=== PATIENT | female | born 1995 | race Caucasian/White ===

== ENCOUNTER 2020-04-13 11:14 | Outpatient (REF) | payer OTHER, SELFPAY ==
[2020-04-13 14:07] LABS: MANUAL DIFF FLAG NO
[2020-04-13 14:23] LABS: Basophils Percent Auto 0.6 % (0-2); Eosinophils Absolute Auto 0.2 X10*3/uL (0.0-0.4); Eosinophils Percent Auto 3.9 % (0-4); Hematocrit 39.4 % (37-47); Hemoglobin 12.8 g/dl (12.0-16.0); Imm Gran Abs Auto 0.01 X10*3/uL (0.00-0.03); Imm Gran Pct Auto 0.2 % (0.0-0.4); Lymphocytes Absolute Auto 1.6 X10*3/uL (1.2-4.9); Lymphocytes Percent Auto 34.9 % (20-40); Mean Corpuscular HGB Conc 32.5 g/dl (31.0-35.0); Mean Corpuscular Volume 89.1 fL (80-98); Mean Platelet Volume 10.6 fL (9.4-12.3); Monocytes Absolute Auto 0.4 X10*3/uL (0.1-1.2); Monocytes Percent Auto 7.7 % (2-11); Neutrophils Absolute Auto 2.5 X10*3/uL (2.0-8.3); Neutrophils Percent Auto 52.7 % (45-73); Platelet Count 266 X10*3/uL (160-400); Red Blood Count 4.42 X10*6/uL (4.20-5.50); Red Cell Distribution Width 12.7 % (11.0-16.0); White Blood Count 4.7 X10*3/uL (4.8-10.8)
[2020-04-13 14:58] LABS: Alanine Aminotransferase 13 U/L (0-31); Albumin Level 4.4 g/dL (3.5-5.0); Alkaline Phosphatase 44 U/L (39-117); Anion Gap 14 (12-20); Aspartate Amino Transferase 17 U/L (5-31); Bilirubin Total 0.4 mg/dL (0.0-1.0); Blood Urea Nitrogen 14 mg/dL (9-16); Calcium 9.1 mg/dL (8.4-10.2); Carbon Dioxide 23 mmol/L (22-29); Chloride 106 mmol/L (96-108); Cholesterol 226 mg/dL; Estimated Glomerular Filt Rate > 60; Glucose Fasting 91 mg/dL (60-99); HDL Cholesterol 74 mg/dL; Iron 60 mcg/dL (30-160); LDL Cholesterol Calculated 133 mg/dl; Percent Iron Saturation 13 % (15-50); Potassium 4.6 mmol/l (3.3-5.1); Sodium 138 mmol/L (135-145); Total Iron Binding Capacity 448 mcg/dL (228-428); Total Protein 7.6 g/dL (6.5-8.0); Triglycerides 95 mg/dL; Unsaturated Iron Binding 388 ug/dL
[2020-04-13 15:22] LABS: TSH reflex Free T4 1.14 mIU/mL (0.32-4.0)
[2020-04-13 15:29] LABS: Vitamin B12 233 pg/mL (200-900)
[2020-04-13 15:52] LABS: Ferritin 16 ng/mL (10-122)
== END 2020-04-13 11:15 | disposition home or self-care (01) ==
LOC: HO.HMGCLDS 11:14
PROVIDERS: PCP Nurse Practitioner Family; Visit Provider Nurse Practitioner Family
DX: Z00.00 Encounter for general adult medical examination without abnormal findings (principal); D50.9 Iron deficiency anemia, unspecified; E53.8 Deficiency of other specified B group vitamins; E61.1 Iron deficiency
CPT/HCPCS: 36415; 80053; 80061; 82607; 82728; 83540; 84443; 85025

== ENCOUNTER → 2020-05-04 10:44 | Outpatient (REF) | payer OTHER, SELFPAY ==
--- NOTE | 2020-05-04 10:48 | CA_ITS ---
Transthoracic Echocardiogram Patient (Last, First, Middle): Becka Parks E Gender: Female Date of : 1995 Age: 24 Procedure Date: 05/04/2020 Procedure Type: Transthoracic Echocardiogram Location: OP Height: 157.48 cm Weight: 58.97 kg BSA: 1.59 m2 Heart Rate: bpm BP: 116 / 52 mmHg Machine Strap Buckler: RELL Montalvo MD: Oli Scott [facility] Variety Saw Operator: Brandin Ortiz MD Symptoms: R01.1 - Cardiac murmur, unspecified Study Quality: Good ECG Rhythm: Sinus Conclusions: - Normal study Findings Left Ventricle Normal left ventricular size, thickness, and systolic function. Diastolic function is normal for age. Right Ventricle Normal right ventricular cavity size and systolic function. Atria Both atria are normal in size. There is no evidence of interatrial shunt. Aortic Valve Normal aortic valve structure and function. There is no aortic valve stenosis. There is no aortic valve regurgitation. Mitral Valve Normal mitral valve structure and function. There is trace mitral valve regurgitation. There is no mitral valve stenosis. Pulmonic Valve The pulmonic valve is likely normal. Tricuspid Valve Normal tricuspid valve structure. There is trace tricuspid valve regurgitation. The right ventricular systolic pressure is normal. The right ventricular systolic pressure is 16 mmHg. Normal right atrial pressure. There is no evidence of pulmonary hypertension. Great Vessels All visible segments of the aorta are normal in size. The pulmonary artery was not well visualized. Venous The inferior vena cava is normal in size and collapses greater than 50% with inspiration. Pericardium/Pleural There is no evidence of pericardial effusion. Prior Study Comparison No prior study available for comparison. Measurements 2D Linear Measurements IVSd: 0.81 0.6-0.9/0.6-1.0 cm LVIDd: 4.33 3.9-5.3/4.2-5.9 cm LVIDd Index: 2.72 2.4-3.2/2.2-3.1 cm/m2 LVIDs: 2.65 2.0-3.6 cm LVPWd: 0.73 0.7-1.1 cm Ao Root: 2.60 2.1-3.5 cm LA Diam: 2.90 2.7-3.8/3.0-4.0 cm LAIDs Index: 1.82 1.5-2.3 cm/m2 LV Mass: 125.06 67-162/88-224 g LV Mass Index: 78.66 43-95/49-115 g/m2 LVOT Diam: 2.00 3.0+(-)1.3 cm 2D Systolic Function EF 4C: 69.60 >55% EF 2C: 66.20 >55% EF BiP: 67.80 >55% Mitral Valve MV Pk E: 0.88 MV PK A: 0.62 MV Decel Time: 236.00 E/A: 1.40 E'Lateral: 19.60 E'Medial: 12.20 E/E' Med: 7.20 E/E' Lat: 4.50 PHT: 69.00 MVA PHT: 3.19 Decel Dubois: 3.71 Aortic Valve AoV Pk Russ: 1.32 AoV Mn Russ: 0.95 AoV VTI: 0.30 AoV Pk Grad: 7.00 Aov Mn Grad: 4.00 MARIANA Cont.VTI: 1.85 LVOT LVOT Pk Russ: 0.87 LVOT Mn Russ: 0.57 LVOT VTI: 0.18 LVOT Pk Grad: 3.00 LVOT Mn Grad: 2.00 LVOT Diam: 2.00 LVOT Area: 3.14 Diastolic Function MV Pk E: 0.88 MV Pk A: 0.62 E/A: 1.40 E'Medial: 12.20 E/E' Med: 7.20 E' Laterial: 19.60 E/E' Lat: 4.50 Tricuspid Valve TR Pk Russ: 1.80 TR Pk Grad: 13.00 RA Press: 3.00 RVSP: 16.00 Great Vessels Aorta Ao Root-2D: 2.60 2.0-3.7 cm Ao Asc: 2.40 2.1-3.4 cm Ao Arch: 2.30 Updated in Other Vendor System with Status of Final Brandin Ortiz MD electronically signed on 05/04/2020 2:37:04 PM with status of Final
== END ==
LOC: HO.CARD 10:44
PROVIDERS: Visit Provider Nurse Practitioner Family
DX: R01.1 Cardiac murmur, unspecified (principal); R00.2 Palpitations
CPT/HCPCS: 93306

== ENCOUNTER → 2020-05-11 12:50 | Outpatient (REF) | payer OTHER, SELFPAY ==
--- NOTE | 2020-05-11 14:10 | ECG_ITS ---
Hook-up date: 2020-05-11 14:49:00 Duration: 47:59:00 Test Indications: PALPITATIONS Medications: 155389 QRS complexes 83 Ventricular ectopics which represent <1 % of total QRS comp. 41 Supraventricular ectopics which represent <1 % of total QRS comp. * Paced QRS complexs which represent % of total QRS comp. VENTRICULAR ECTOPY 83 Isolated 0 Bigeminal Cycles 0 Couplets 0 Runs 0 Beats in Runs * Beats LONGEST at * BPM at :: -- * Beats FASTEST at * BPM at :: -- SUPRAVENTRICULAR ECTOPY 41 Isolated 0 Couplets 0 Runs 0 Beats in Runs * Beats LONGEST at * BPM at :: -- * Beats FASTEST at * BPM at :: -- HEART RATES 51 MIN at 04:45:44 2020-05-12 87 AVG 160 MAX at 14:51:24 2020-05-12 LONGEST RR 1.3200 secs at 03:09:28 2020-05-12 S-T LEVELS Channel 1 - 128 mm at 14:49:00 2020-05-11 - 128 mm at 14:49:00 2020-05-11 Channel 2 - 128 mm at 14:49:00 2020-05-11 - 128 mm at 14:49:00 2020-05-11 Channel 3 - 128 mm at 03:40:81 -- - 128 mm at 03:40:81 Basic rhythm Normal sinus rhythm No long pause or profound bradycardia Rare Premature ventricular complexes Rare Premature atrial complexes Patient symptoms of fluttering probably correlated with PAC Referred By: Oli Scott Overread By: SHELLY ACOSTA MD
== END ==
LOC: HO.CARD 12:50
PROVIDERS: Visit Provider Nurse Practitioner Family
DX: R00.2 Palpitations (principal)
CPT/HCPCS: 93225; 93226

== ENCOUNTER 2021-03-23 12:52 | Outpatient (REF) | payer OTHER, SELFPAY ==
[2021-03-23 14:27] LABS: Basophils Percent Auto 0.7 % (0-2); Eosinophils Absolute Auto 0.2 X10*3/uL (0.0-0.4); Eosinophils Percent Auto 3.7 % (0-4); Hematocrit 40.6 % (37.0-47.0); Hemoglobin 13.6 g/dl (12.0-16.0); Imm Gran Abs Auto 0.01 X10*3/uL (0.00-0.03); Imm Gran Pct Auto 0.2 % (0.0-0.4); Lymphocytes Absolute Auto 1.7 X10*3/uL (1.2-4.9); MANUAL DIFF FLAG SCAN; Mean Corpuscular HGB Conc 33.5 g/dl (31.0-35.0); Mean Corpuscular Hemoglobin 30.1 pg (27.0-33.0); Mean Corpuscular Volume 89.8 fL (80.0-98.0); Mean Platelet Volume 10.9 fL (9.4-12.3); Monocytes Absolute Auto 0.3 X10*3/uL (0.1-1.2); Monocytes Percent Auto 8.1 % (2-11); Neutrophils Absolute Auto 1.9 x10*3/uL (2.0-8.3); Neutrophils Percent Auto 46.3 % (45-73); PLT CLUMP 1; Red Blood Count 4.52 X10*6/uL (4.20-5.50); Red Cell Distribution Width 13.1 % (11.0-16.0); SCAN SMEAR FLAG 1; White Blood Count 4.1 X10*3/uL (4.8-10.8)
[2021-03-23 14:52] LABS: Ferritin 41 ng/mL (10-122)
[2021-03-23 14:53] LABS: Platelet Count 210 X10*3/uL (160-400)
[2021-03-23 14:55] LABS: SLIDE REVIEW VERIFIED
[2021-03-23 15:02] LABS: Vitamin B12 409 pg/mL (200-900)
[2021-03-26 07:47] LABS: TS Negative Control Passed; TS Panel A 0; TS Panel B 0; TS Positive Control Passed; TSpotTB Negative (Negative)
[2021-03-27 19:36] LABS: Intrinsic Factor Antibodies Negative (Negative)
[2021-03-29 22:17] LABS: Parietal Cell Antibody <=20.0 Unit (<=20.0)
== END 2021-03-23 12:53 | disposition home or self-care (01) ==
LOC: HO.HMGCLDS 12:52
PROVIDERS: PCP Nurse Practitioner Family; Visit Provider Nurse Practitioner Family
DX: Z11.1 Encounter for screening for respiratory tuberculosis (principal); E61.1 Iron deficiency; E53.8 Deficiency of other specified B group vitamins
CPT/HCPCS: 36415; 82607; 82728; 83516; 85025; 86340; 86481

== ENCOUNTER 2021-03-28 12:45 | Outpatient (REF) | payer OTHER, SELFPAY ==
[2021-03-28 14:30] LABS: Alanine Aminotransferase 11 U/L (0-31); Albumin Level 4.2 g/dL (3.5-5.0); Alkaline Phosphatase 43 U/L (39-117); Anion Gap 13 (12-20); Aspartate Amino Transferase 14 U/L (5-31); Bilirubin Total 0.6 mg/dL (0.0-1.0); Blood Urea Nitrogen 11 mg/dL (9-16); Calcium 9.4 mg/dL (8.4-10.2); Carbon Dioxide 22 mmol/L (22-29); Chloride 109 mmol/L (96-108); Estimated Glomerular Filt Rate > 60; Glucose Fasting 88 mg/dL (60-99); Potassium 4.1 mmol/L (3.3-5.1); Sodium 140 mmol/L (135-145); Total Protein 7.3 g/dL (6.5-8.0)
[2021-03-29 05:10] LABS: ~Hepatitis B Surface Antibody REACTIVE (Nonreactive)
[2021-03-29 05:13] LABS: HBc Num1 0.09 S/CO (0.00-0.79); HBsAGNum1 0.18 S/CO (0.00-0.99); Hepatitis B Core Antibody Nonreactive (Nonreactive); Hepatitis B Surface Antigen Negative (Negative); ~HepC Num1 0.12 S/CO (0.00-0.79); ~Hepatitis C Antibody Nonreactive (Nonreactive)
[2021-03-30 08:24] LABS: Hepatitis A Antibody IgM 0.19 Index (0-0.79); ~Hepatitis A Antibody IgM Nonreactive (Nonreactive)
[2021-04-02 17:51] LABS: Mumps Virus IgG Antibody <9.00 AU/mL; Rubella IgG Antibody 1.64 Index
== END 2021-03-28 12:46 | disposition home or self-care (01) ==
LOC: HO.HMGCLDS 12:45
PROVIDERS: PCP Nurse Practitioner Family; Visit Provider Nurse Practitioner Family
DX: Z00.00 Encounter for general adult medical examination without abnormal findings (principal); Z28.3 Underimmunization status
CPT/HCPCS: 36415; 80053; 86704; 86706; 86709; 86735; 86762; 86765; 86787; 86803; 87340

== ENCOUNTER 2022-07-31 10:11 | Outpatient (REF) | payer OTHER, SELFPAY ==
[2022-07-31 11:07] LABS: MANUAL DIFF FLAG NO
[2022-07-31 11:13] LABS: Basophils Percent Auto 0.7 % (0-2); Eosinophils Absolute Auto 0.1 X10*3/uL (0.0-0.4); Eosinophils Percent Auto 3.5 % (0-4); Hematocrit 38.9 % (37.0-47.0); Imm Gran Abs Auto 0.01 X10*3/uL (0.00-0.03); Imm Gran Pct Auto 0.2 % (0.0-0.4); Lymphocytes Absolute Auto 1.5 X10*3/uL (1.2-4.9); Lymphocytes Percent Auto 36.8 % (20-40); Mean Corpuscular HGB Conc 33.4 g/dl (31.0-35.0); Mean Corpuscular Hemoglobin 29.1 pg (27.0-33.0); Mean Platelet Volume 9.8 fL (9.4-12.3); Monocytes Absolute Auto 0.3 X10*3/uL (0.1-1.2); Monocytes Percent Auto 8.4 % (2-11); Neutrophils Percent Auto 50.4 % (45-73); Platelet Count 268 X10*3/uL (160-400); Red Blood Count 4.47 X10*6/uL (4.20-5.50); Red Cell Distribution Width 13.5 % (11.0-16.0); White Blood Count 4.1 X10*3/uL (4.8-10.8)
[2022-07-31 11:18] LABS: Appearance Urine Clear; Color Urine Yellow; Glucose Urine UA Negative (Negative); Leukocyte Esterase Urine Negative (Negative); Nitrite Urine Negative (Negative); PH 5.5 (5.0-9.0); Specific Gravity - Urine 1.025 (1.005-1.025); Urine Blood Negative (Negative); Urine Ketones Trace mg/dL (Negative); Urine Protein Trace mg/dL (Neg-Trace)
[2022-07-31 12:12] LABS: Alanine Aminotransferase 22 U/L (0-31); Albumin Level 4.3 g/dL (3.5-5.0); Alkaline Phosphatase 50 U/L (39-117); Anion Gap 13 (12-20); Aspartate Amino Transferase 35 U/L (5-31); Bilirubin Total 0.4 mg/dL (0.0-1.0); Blood Urea Nitrogen 15 mg/dL (9-16); Calcium 9.2 mg/dL (8.4-10.2); Carbon Dioxide 23 mmol/L (22-29); Chloride 109 mmol/L (96-108); Cholesterol 237 mg/dL; Estimated Glomerular Filt Rate > 60; Glucose Fasting 87 mg/dL (60-99); HDL Cholesterol 72 mg/dL; LDL Cholesterol Calculated 144 mg/dl; Potassium 4.7 mmol/L (3.3-5.1); Sodium 140 mmol/L (135-145); Total Protein 7.3 g/dL (6.5-8.0); Triglycerides 108 mg/dL
[2022-07-31 12:43] LABS: Folate 13.9 ng/mL (> or = 4.0); TSH reflex Free T4 1.64 uIU/mL (0.32-4.0); Vitamin B12 391 pg/mL (200-900)
== END 2022-07-31 10:12 | disposition home or self-care (01) ==
LOC: HO.HMGCLDS 10:11
PROVIDERS: PCP Nurse Practitioner Family; Visit Provider Nurse Practitioner Family
DX: Z00.00 Encounter for general adult medical examination without abnormal findings (principal); E53.8 Deficiency of other specified B group vitamins; E78.5 Hyperlipidemia, unspecified; F41.9 Anxiety disorder, unspecified
CPT/HCPCS: 36415; 80053; 80061; 81003; 82607; 82746; 84443; 85025

== ENCOUNTER 2022-10-16 11:26 | Outpatient (REF) | payer OTHER, SELFPAY ==
[2022-10-16 13:35] LABS: MANUAL DIFF FLAG NO
[2022-10-16 13:50] LABS: Basophils Percent Auto 0.7 % (0-2); Eosinophils Absolute Auto 0.2 X10*3/uL (0.0-0.4); Eosinophils Percent Auto 3.7 % (0-4); Hematocrit 39.2 % (37.0-47.0); Hemoglobin 12.9 g/dl (12.0-16.0); Immature Retic Fraction 3.3 % (3.0-15.9); Lymphocytes Absolute Auto 1.6 X10*3/uL (1.2-4.9); Lymphocytes Percent Auto 40.3 % (20-40); Mean Corpuscular HGB Conc 32.9 g/dl (31.0-35.0); Mean Corpuscular Volume 88.1 fL (80.0-98.0); Mean Platelet Volume 9.8 fL (9.4-12.3); Monocytes Absolute Auto 0.3 X10*3/uL (0.1-1.2); Monocytes Percent Auto 7.7 % (2-11); Neutrophils Absolute Auto 1.9 x10*3/uL (2.0-8.3); Neutrophils Percent Auto 47.6 % (45-73); Platelet Count 230 X10*3/uL (160-400); Red Blood Count 4.45 X10*6/uL (4.20-5.50); Red Cell Distribution Width 13.1 % (11.0-16.0); Retic HGB Equivalent 33.7 pg (30.0-35.0); Reticulocyte Percent 1.1 % (0.5-1.8); Reticulocytes Absolute 0.048 X10*6/uL (0.026-0.095)
[2022-10-16 14:31] LABS: Alanine Aminotransferase 9 U/L (0-31); Albumin Level 4.1 g/dL (3.5-5.0); Alkaline Phosphatase 54 U/L (39-117); Anion Gap 13 (12-20); Aspartate Amino Transferase 15 U/L (5-31); Bilirubin Total 0.5 mg/dL (0.0-1.0); Blood Urea Nitrogen 10 mg/dL (9-16); Calcium 9.6 mg/dL (8.4-10.2); Carbon Dioxide 20 mmol/L (22-29); Chloride 109 mmol/L (96-108); Cholesterol 225 mg/dL; Estimated Glomerular Filt Rate > 60; Glucose Fasting 83 mg/dL (60-99); Glucose Random 83 mg/dL (60-115); HDL Cholesterol 76 mg/dL; Iron 114 mcg/dL (30-160); LDL Cholesterol Calculated 128 mg/dl; Percent Iron Saturation 30 % (15-50); Potassium 4.1 mmol/L (3.3-5.1); Sodium 138 mmol/L (135-145); Total Iron Binding Capacity 378 mcg/dL (228-428); Total Protein 7.3 g/dL (6.5-8.0); Triglycerides 106 mg/dL; Unsaturated Iron Binding 264 ug/dL
[2022-10-16 14:55] LABS: Ferritin 18 ng/mL (10-122); Free T4 (Free Thyroxine) 0.89 ng/dL (0.71-1.85); TSH reflex Free T4 1.25 uIU/mL (0.32-4.0)
[2022-10-16 15:06] LABS: Folate 11.3 ng/mL (> or = 4.0); Vitamin B12 350 pg/mL (200-900)
[2022-10-19 03:08] LABS: A. Phagocytphilium DNA,RT-PCR NOT DETECTED (NOT DETECTED); Babesia Microti DNA, RT-PCR NOT DETECTED (NOT DETECTED); Borrelia Miyamotoi,DNA RT-PCR NOT DETECTED (NOT DETECTED); E.Chaffeensis DNA RT-PCR NOT DETECTED (NOT DETECTED); Lyme(Borrelia ssp)DNA RT-PCR NOT DETECTED (NOT DETECTED)
== END 2022-10-16 11:27 | disposition home or self-care (01) ==
LOC: HO.HMGCLDS 11:26
PROVIDERS: PCP Nurse Practitioner Family; Visit Provider Nurse Practitioner Family
DX: E78.5 Hyperlipidemia, unspecified (principal); R74.8 Abnormal levels of other serum enzymes; R53.83 Other fatigue; Z20.2 Contact with and (suspected) exposure to infections with a predominantly sexual mode of transmission
CPT/HCPCS: 36415; 80053; 80061; 82607; 82728; 82746; 83540; 84439; 84443; 85025; 85045; 87798; 87801

== ENCOUNTER 2024-05-31 14:38 | Outpatient (AMB) | payer BC, SELFPAY ==
--- NOTE | 2024-05-31 14:43 | A.OFFPC_ITS ---
Vital Signs 05/31/24 14:44 Height 5 ft 3 in Weight 152 lb 6 oz BMI 27.0 BP 126/78 Blood Pressure Location Rt brachial Position Sitting Respiration 16 Pulse 97 Pulse Source Pulse Oximeter Temp 98 F Temp Source Oral Pulse Oximetry (%) 97 Oxygen Delivery Method Room Air Intake Visit Reasons: PE Intake Note: Pt is here today for her annual physical Allergies amoxicillin Allergy (Unknown, Verified 05/31/24 14:44) Full body rash azithromycin [From Zithromax Z-Satish] Adverse Reaction (Unknown, Verified 05/31/24 14:44) nausea and vomiting Medication List - Last Reconciled 05/31/24 by Oli Scott, DIESEL DINKEY ENGINEER- etonogestrel-ethinyl estradiol 0.12-0.015 mg/24 hr 0.12 vag rings vaginal DIRECTED fluticasone propionate 50 mcg/actuation 2 sprays intranasal DAILY ibuprofen 800 mg PO TID Tobacco use date assessed: 05/31/24 Dental Screening Dental Screen Date: 05/31/24 Did you have a dental visit in the last 12 months?: Yes Did you have a dental problem in the last 6 months where you did not have access to dental care?: No Was dental information given to patient?: Patient has dentist HPI PE HPI Details History of Present Illness The patient is a 28-year-old female presenting with increased anxiety. She has reported a recent escalation in her anxiety levels, though the specific duration is not mentioned. The increased anxiety appears to be a recent development without any noted specific inciting events. The patient denies experiencing chest pain, shortness of breath, or hematemesis. There is no indication of any previous psychiatric diagnoses or treatments in the conversation, and the conversation does not discuss any specific prior interventions for anxiety. The patient denies any suicidal or homicidal ideation. Hx of b12 def and iron def, will check labs Health Maintenance Social History - The conversation did not provide speci fic details about the patient's social determinants of health. Review of Systems - Psychiatric: Reports increased anxiety . Denies suicidal or homicidal thoughts. - Cardiovascular: Denies chest pain. - Respiratory: Denies shortness of breat h. - Gastrointestinal: Denies vomiting, hem atemesis. Physical Exam General: Cooperative, healthy appearing, comfortable, no acute distress and well developed Orientation: Patient oriented x3 Limitations: No limitations Head: Normal to inspection Ears: Hearing grossly normal bilaterally Nose: Normal external nose present Face and sinus: Normal facial exam Eyes: Appearance normal, both eyes and all related structures Neck: Normal visual inspection and Yes full ROM Respiratory: Normal respiratory effort and able to speak in complete sentences. Clear to auscultation bilaterally Cardiovascular: Regular rate and rhythm. Normal S1 and S2 GI: Normal to inspection. Soft to palpation and nontender Skin: No rashes or lesions noted Neuro: Patient oriented x3 Extremities: Normal to inspection Results Plan - Initiate treatment for generalized anx iety disorder, starting with medication management to address increased anxiety symptoms. - The patient will be monitored for resp onse to pharmacotherapy and advised to contact if symptoms do not improve. - Arrange for laboratory testing to [facility] in the near future. Discussion Notes During the visit, I discussed the management and treatment of the patient's increased anxiety. Initiation of medication as a primary treatment option was agreed upon, emphasizing the importance of contacting me if the new regimen does not alleviate her symptoms. Laboratory workup is also planned to ensure comprehensive management. The patient denied any acute distress symptoms, including chest pain or shortness of breath, and affirmed no current suicidal ideation. No immediate procedural risks were discussed during this visit, but the patient was advised to follow up for labs soon. Patient Instructions - Begin the prescribed daily medication for anxiety as directed. - Monitor your symptoms, and contact me if you notice no improvement or have concerns. - Expect a follow-up lab workup in the n ear future. - Seek immediate care if any new symptom s arise, such as chest pain or severe shortness of breath. [facility] Medical History B12 deficiency DIEGO (generalized anxiety disorder) Iron deficiency anemia Surgical History History of elbow surgery History of wisdom tooth extraction History of tonsillectomy Family History Father HTN (hypertension) Diabetes mellitus Mother High cholesterol Sister Thyroid disease Maternal Grandmother Smoker CVD (cardiovascular disease) Lung cancer Maternal Grandfather Alzheimer's disease Dementia Paternal Grandmother No problems noted. Paternal Grandfather Diabetes mellitus Brother No problems noted. Sister No problems noted. Sister No problems noted. Maternal Uncle Substance use disorder Social History Household Members: Family Housing: House Alcohol intake: current Alcohol intake frequency: a few times a month Patient Tobacco Use Status: Never used Tobacco e-Cigarette/Vaping Use: Never Used Second Hand Smoke Exposure: Yes service: No Current occupational status: employed and student Current occupation: [employer] Current occupational exposures/hazards: Yes Cognitive needs: No Hearing needs: No Vision needs: No Questionnaire PHQ-9 Over the last 2 weeks, how often have you been bothered by any of the following problems? 1. Little interest or pleasure in doing things: several days 2. Feeling down, depressed, or hopeless: not at all 3. Trouble falling or staying asleep, or sleeping too much: several days 4. Feeling tired or having little energy: several days 5. Poor appetite or overeating: not at all 6. Feeling bad about yourself - or that you are a failure or have let yourself or your family down: not at all 7. Trouble concentrating on things, such as reading the newspaper or watching television: not at all 8. Moving or speaking so slowly that other people could have noticed. Or the opposite - being so fidgety or restless that you have been moving around a lot more than usual: not at all 9. Thoughts that you would be better off or of hurting yourself in some way: not at all Total score: 3 Depression Screening Interpretation: Negative Depression Screening Done: Yes 07254 - PHQ-9 Billing: Yes Source: Developed by Drs. Landon Anderson, Marilu Reeves, Terry Carrero and colleagues, with an educational el from [employer]. Thrive Questionnaire Date Thrive assessed: 05/31/24 I am a: Patient What is your living situation today?: I have a steady place to live Within the past 12 months, did the food you bought not last and you didn't have the money to get more?: Never true Within the past 12 months, did you worry whether your food would run out before you got money to buy more?: Never true Do you have trouble paying for medicines?: No Do you have trouble getting transportation to medical appointments?: No Do you have trouble paying your heating and electricity bill?: No Do you have trouble taking care of your child, family member or friend?: No Do you have trouble with day-to-day activities such as bathing, preparing meals, shopping, managing finances, etc.?: No Are you currently unemployed and looking for a job?: No Are you interested in more education?: No Please select the resources that you would like help with: None Currently or been in a relationship where the following occur: I choose not to answer THRIVE Score: 0 AUDIT C Alcohol Use Questionnaire (AUDIT-C) 1. How often do you have a drink containing alcohol?: 2-4 times a month 2. How many drinks containing alcohol do you have on a typical day when you are drinking?: 1 or 2 3. How often do you have six or more drinks on one occasion?: Never Total Score: 2 Score Reviewed/Action Taken: Yes DIEGO-7 AMB Questionnaire DIEGO-7 Date DIEGO - 7 assessed: 05/31/24 Feeling nervous, anxious, or on edge: 1 = Several days Not being able to stop or control worryin = Several days Worrying too much about different things: 1 = Several days Trouble relaxin = Several days Being so restless that it is hard to sit still: 0 = Not at all Becoming easily annoyed or irritable: 0 = Not at all Feeling afraid as if something awful might happen: 0 = Not at all Total DIEGO-7 score (0-4 normal; 5-9 mild; 10-14 moderate; 15-21 severe): 4 Source: Developed by Drs. Landon Anderson, Marilu Reeves, Terry Carrero and colleagues, with an educational el from [employer]. DIEGO-7 Assessment Billing DIEGO-7 Assessment Tool: DIEGO-7 Assessment 30453 Physical exam (Primary Care) Vital Signs: Last Vital Signs Temp 98 F 05/31/24 14:44 Pulse 97 05/31/24 14:44 Resp 16 05/31/24 14:44 BP 126/78 05/31/24 14:44 Pulse Ox 97 05/31/24 14:44 Oxygen Delivery Method Room Air 05/31/24 14:44 BMI result Body Mass Index 27.0 Tobacco/Smoking Status: Tobacco use Status Tobacco use date assessed 05/31/24 05/31/24 14:53 Patient Tobacco Use Status Never used Tobacco 05/31/24 14:53 e-Cigarette/Vaping Use Never Used 05/31/24 14:53 PHQ-9: PHQ-9 Score PHQ-9: Total score 3 05/31/24 14:57 Depression Screening Interpretation: Negative Thrive Assessment: Date of Thrive Assessment Date Thrive assessed 05/31/24 05/31/24 14:57 Currently or been in a relationship where the following occur: I choose not to answer Coding Level of Care Code Est Pt Prev Care 18-39y(01168) Diagnoses Physical exam Z00.00 Family history of basal cell carcinoma Z80.8 B12 deficiency E53.8 Iron deficiency E61.1 Additional Codes DIEGO-7 Assessment Billing - DIEGO-7 Assessment Tool: DIEGO-7 Assessment 11013 ([id number]) PHQ-9 - 75350 - PHQ-9 Billing: Yes ([id number]) Assessment & Plan Assessment & Plan (1) Physical exam: Code(s): Z00.00 - Encounter for general adult medical examination without abnormal findings Category: Medical (2) Family history of basal cell carcinoma: Code(s): Z80.8 - Family history of malignant neoplasm of other organs or systems Category: Medical (3) B12 deficiency: Code(s): E53.8 - Deficiency of other specified B group vitamins Category: Medical (4) Iron deficiency: Code(s): E61.1 - Iron deficiency Category: Medical Plan . Orders: Orders Complete Blood Count Auto Diff Today Z00.00 - Encounter for general adult medical examination without abnormal findings Comprehensive [place]. Panel Fast Today Z00.00 - Encounter for general adult medical examination without abnormal findings UA CC w/rflx Micro + Cult Today Z00.00 - Encounter for general adult medical examination without abnormal findings Ferritin Today E53.8 - Deficiency of other specified B group vitamins, E61.1 - Iron deficiency IRON PROFILE Today E53.8 - Deficiency of other specified B group vitamins, E61.1 - Iron deficiency TSH reflex Free T4 Today Z00.00 - Encounter for general adult medical examination without abnormal findings Lipid Panel Today Z00.00 - Encounter for general adult medical examination without abnormal findings Vitamin B12 and Folate Today E53.8 - Deficiency of other specified B group vitamins, E61.1 - Iron deficiency Referrals Dermatology Referral Z80.8 - Family history of malignant neoplasm of other organs or systems Medications: New buspirone 10 mg PO BID 30 days 60 tabs 2RF
[2024-05-31 14:44] VITALS: BP 126/78; PULSE 97; RESP 16; TEMP 36.6; O2SAT 97; BMI 27.0
--- OUTSIDE RECORDS SUMMARY | 2024-05-31 16:53 | XMS_ITS | Encounter Summary ---
Author Organization [facility] Address [address] [place] [id number] Phone Care Team Providers Care Service Member Name Role Phone Unavailable Primary Care Provider Unavailabl e Reason for Visit * Reason Comments Med Refill Encounter Details Date Type Department Care Team (Late st Contact Info) Description 09/15/2017 [facility]ill [facility] [address] [place] [address] Joelle Cedillo MD [address] [place] [address] Oral contraceptive pill surveillance (Primary Dx) Social History Tobacco Use Types Packs/Day Years Used Date Smoking Tobacco: Never Comments:Never smoker Comments Unknown Sex and Gender Information Value Date Recorded Sex Assigned at Not on file Legal Sex Female 5:10 PM EDT Gender Identity Not on file Sexual Orientation Not on file documented as of this encounter Miscellaneous Notes * Telephone Encounter - Joelle Cedillo MD - 09/15/2017 5:28 PM EDT Script sent. PPP * Telephone Encounter - Radha Pink LPN - 09/15/2017 3:50 PM EDT VIENVA 0.1MG/0.02MG TABS 28'S--Last pe 11/21 pe pending 11/22. documented in this encounter Plan of Treatment Not on file documented as of this encounter Visit Diagnoses Diagnosis Oral contraceptive pill surveillance- Primary documented in this encounter
--- OUTSIDE RECORDS SUMMARY | 2024-05-31 16:53 | XMS_ITS | Clinical Summary ---
Author Organization [facility] Address [address] [place] [id number] Phone Care Team Providers Care Environmental Remediation Engineer Name Role Phone Unavailable Primary Care Provider Unavailabl e Allergies Active Allergy Reactions Criticality Noted Date Comments Amoxicillin Hives Food 12/01/2017 [place] Medications VIENVA 0.1-20 MG-MCG per tabletIndications: Oral contraceptive pill surveillance TAKE 1 TABLET BY MOUTH DAILY 56 tablet 1 8 Active cetirizine 10 MG tablet Take 10 mg by mouth daily. Active norgestimate-ethin yl estradiol (ORTHO TRI-CYCLEN, 28,) 0.18/0.215/0.25 MG-35 MCG per tabletIndications: Well adult exam Take 1 tablet by mouth daily. 84 tablet 3 9 Active Immunizations Immunization Administration Dates Next Due DTaP 5 11/12/2000, 9,06/17/1997,04/11,01/14/1997 HPV, Quadrivalent 07/25/2009,02/15/2009,11/17/19 09 Hep A, ped/adol 11/21/2014,11/18/2013 Hep B, ped/adol 06/17/1997,01/14/1997,1996 Hib (PRP-T) 02/24/1998, 8,04/11/1997,01/14 IPV 11/12/2000 Influenza, injectable, quadr ivalent, preservative free 11/26/2016 Influenza, injectable, trivalent 01/14/2015 MMR 11/12/2000,11/11/1997 Meningococcal Conj (Menactra) MCV4P 11/21/2014,0 11/16/2008 OPV 06/17/1997,04/11/1997,01/14/1997 Tdap 12/01/2017,11/16/2008 Varicella 11/19/2006,11/11/1997 Family History Medical History Relation Name Comments ADD / ADHD Father Cancer Father RAN disease Father Hyperlipidemia Father Hypertension Father Allergic rhinitis Half-Brother Fabian Seymour Migraines Mother Odessa Relation Name Status Comments Father Half-Brother Fabian Seymour Alive Half-Sister Elle Seymour Alive Mother Odessa Alive Paternal Grandfather Paterna l grandfather: Diabetes mellitus Sister Jodee Alive Social History Tobacco Use Types Packs/Day Years Used Date Smoking Tobacco: Never Comments:Never smoker Comments No Sex and Gender Information Value Date Recorded Sex Assigned at Not on file Legal Sex Female 5:10 PM EDT Gender Identity Not on file Sexual Orientation Not on file Last Filed Vital Signs Vital Sign Reading Time Taken Comments Blood Pressure 126/75 12/01/2017 9:12 AM EDT Pulse 62 12/01/2017 9:12 AM EDT Temperature 36.8 ??C (98.3 ??F) 11/18/2013 12:00 AM E DT Respiratory Rate - - Oxygen Saturation - - Inhaled Oxygen Concentration - - Weight 60 kg (132 lb 3.2 oz) 12/01/2017 9:12 AM EDT Height 157.5 cm (5' 2 ) 12/01/2017 9:12 AM EDT Body Mass Index 24.18 12/01/2017 9:12 AM EDT Plan of Treatment Health Maintenance Due Date Last Done Comments Consider Men B Vaccine (1 of 2 - Bexsero 2-dose series) 2012 Influenza Vaccines (#1) 2023 11/26/2016, 01/14 COVID-19 Vaccine ( season) 2023 DTaP,Tdap,and Td Vaccines (8 - Td or Tdap) 12/02/2027 12/01/2017, 11/16/2008, 11/12/2000, Additional history exists Hepatitis B Vaccines Completed 06/17/1997, 01/14/1997, 1996 HIB Vaccines Completed 02/24/1998, 06/05, 04/11/1997, Additional history exists IPV Vaccines Completed 11/12/2000, 06/05, 04/11/1997, Additional history exists MMR Vaccines Completed 11/12/2000, 11/11/1997 Varicella Vaccines Completed 11/19/2006, 11/11/1997 HPV Vaccines Completed 07/25/2009, 02/05, 11/16/2008 Hepatitis A Vaccines Completed 11/21/2014, 11/19/19 14 Meningococcal Vaccine Completed 11/21/2014, 009 Men B Vaccine Aged Out No longer elig ible based on patient's age to complete this topic Pneumococcal Vaccine Aged Out No long er eligible based on patient's age to complete this topic Procedures * Due to [place] law, this organization might not be sharing sensitive test results. Procedure Name Priority Date/Time Associated Diagnosis Comments CHLAMYDIA AND GONORRHEA, AMPLIFIED Routine 12/01/2017 9:26 AM EDT Well adult exam from Last 3 Months or Most Recently Relevant to Health Maintenance Results * Due to [place] law, this organization might not be sharing sensitive test results. * Chlamydia and Gonorrhea, Amplified (12/01/2017 9:26 AM EDT) Chlamydia Trachomatis, DNA Probe NEGATIVE (NEG) [facility] Comment: No Chlamydia Trachomatis RNA detected in this patient's sample ? (REFERENCE RANGE/NORMAL VALUE: NOT DETECTED) ? Note: This test uses organ fixer- mediated amplification method to detect rRNA from C. Trachomatis URINE GC AMP PROBE NEGATIVE (NEG) [facility] Comment: No Neisseria Gonorrhoeae RNA detected in this patient's sample ? (REFERENCE RANGE/NORMAL VALUE: NOT DETECTED) ? NOTE: This test uses organ fixer-mediated amplification method to detect rRNA from N.Gonorrhoeae. A negative result does not preclude infection. In the case of a negative urine result, testing of an endocervical(female) or urethral (male) specimen is recommended if there is high clinical suspicion of infection. Due to very high sensitivity of Nucleic Acid Amplification Test, false positive results may occur. Therefore, specimen handling is extremely important. In patients in whom the disease is unlikely, additional sample for testing should be considered after an initial positive result. The performance characteristics of this test have not been evaluated in children. The Aptima Combo2 assay is not intended for the evaluation of suspected sexual abuse or for other medico-legal indications. The ordering provider should assess if the patient had consensual sex without risk of sexual abuse. Consult the [facility] if needed. Contact phone number . Therapeutic failure or success cannot be determined with the Aptima Combo2 assay since nucleic acid may persist following appropriate antimicrobial therapy. The Centers for Disease Control and Prevention (CDC) recommends confirmatory retesting using culture or a different nucleic acid amplification test when positive results occur, if indicated. Testing performed or reported by [facility], a Service of [facility], [facility] [address], [place] [address] CLIA ??[id number] Ede Orozco MD, PhD, Attorney At Law Urine 12/01/2017 9:26 AM EDT 12/01/2017 10:56 PM EDT us Joelle Cedillo MD LAB MICROBIOLOGY - GENERAL ORDERABLES Final Result [facility] from Last 3 Months or Most Recently Relevant to Health Maintenance Insurance [facility]
--- OUTSIDE RECORDS SUMMARY | 2024-05-31 16:53 | XMS_ITS | Encounter Summary ---
Author Organization [facility] Address [address] [place] [address] Phone Care Team Providers Care Road Supervisor Of Engines Name Role Phone Unavailable Primary Care Provider Unavailabl e Encounter Details Date Type Department Care Team (Late st Contact Info) Description 07/21/2014 Documentation [facility] [place] [address] Family Medicine, Physician [address] [place] [address] Social History Tobacco Use Types Packs/Day Years Used Date Smoking Tobacco: Never Assessed Comments Unknown Sex and Gender Information Value Date Recorded Sex Assigned at Not on file Legal Sex Female 5:10 PM EDT Gender Identity Not on file Sexual Orientation Not on file documented as of this encounter Plan of Treatment Not on file documented as of this encounter Visit Diagnoses Not on filedocumented in this encounter
--- OUTSIDE RECORDS SUMMARY | 2024-05-31 16:53 | XMS_ITS | Encounter Summary ---
Author Organization [facility] Address [address] [place] [address] Phone Care Team Providers Care Marine Farmer Name Role Phone Unavailable Primary Care Provider Unavailabl e Encounter Details Date Type Department Care Team (Late st Contact Info) Description 08/03/2014 Documentation [facility] [place] Counts include 234 beds at the [facility] [place] [address] Family Medicine, Physician [address] [place] [address] Social History Tobacco Use Types Packs/Day Years [...]
--- OUTSIDE RECORDS SUMMARY | 2024-05-31 16:53 | XMS_ITS | Encounter Summary ---
Author Organization [facility] Address [address] [place] [address] Phone Care Team Providers Care Sugar Drier Name Role Phone Unavailable Primary Care Provider Unavailabl e Encounter Details Date Type Department Care Team (Late st Contact Info) Description 11/21/2016 Conversion Encounter [facility] - [address] [address] Social History Tobacco Use Types Packs/Day Years [...]
--- OUTSIDE RECORDS SUMMARY | 2024-05-31 16:53 | XMS_ITS | Encounter Summary ---
Author Organization [facility] Address [address] [place] [address] Phone Care Team Providers Care Supervisor Accounts Receivable Name Role Phone Unavailable Primary Care Provider Unavailabl e Encounter Details Date Type Department Care Team (Late st Contact Info) Description 10/10/2016 Documentation [facility] [place] [facility] [place] [address] Family Medicine, Physician [address] [place] [address] Social History Tobacco Use Types Packs/Day Years [...]
--- OUTSIDE RECORDS SUMMARY | 2024-05-31 16:53 | XMS_ITS | Encounter Summary ---
Author Organization [facility] Address [address] [place] [address] Phone Care Team Providers Care Online Merchandiser Name Role Phone Unavailable Primary Care Provider Unavailabl e Encounter Details Date Type Department Care Team (Late st Contact Info) Description 12/23/2012 Documentation [facility] [place] [facility] [place] [address] Family Medicine, Physician [address] [place] [address] Social History Tobacco Use Types Packs/Day Years [...]
--- OUTSIDE RECORDS SUMMARY | 2024-05-31 16:53 | XMS_ITS | Encounter Summary ---
Author Organization [facility] Address [address] [place] [address] Phone Care Team Providers Care Parking Meter Installer Name Role Phone Unavailable Primary Care Provider Unavailabl e Encounter Details Date Type Department Care Team (Late st Contact Info) Description 12/23/2012 Documentation [facility] Family Medicine [facility] [place] [address] Family Medicine, Physician [address] [place] [address] Social History Tobacco Use Types Packs/Day Years [...]
--- OUTSIDE RECORDS SUMMARY | 2024-05-31 16:53 | XMS_ITS | Clinical Summary ---
Author Organization [facility] Address [address] [place] [address] Care Team Providers Care Foster Care Worker Name Role Phone Pcp, No Primary Care Provider Unavailabl e Social History Tobacco Use Types Packs/Day Years Used Date Smoking Tobacco: Never Assessed Sex and Gender Information Value Date Recorded Sex Assigned at Unknown 05/29/2023 10:27 AM EST Gender Identity Choose not to disclose 10:27 AM EST Sexual Orientation Choose not to disclose 2023 10:27 AM EST Plan of Treatment Health Maintenance Due Date Last Done Comments Hepatitis C Virus Screening 1996 HIV Screening 2009 DTaP/Tdap/Td Vaccines (1 - Tdap) 11/10/2015 Hepatitis B Vaccines (1 of 3 - 19+ 3-dose series) 11/10/2015 Pap Smear (Ages 21-65) 2017 Influenza Vaccine 11/06/2023 11/26/2016, 01/14/2015 COVID-19 Vaccine ( - 2023-2 5 season) 2023 HPV Vaccines Aged Out No longer eligi ble based on patient's age to complete this topic Pneumococcal Vaccine: Pediatric (0-5 Years) and At-Risk Patients (6 to 49 Years) Aged Out No longer eligible b ased on patient's age to complete this topic Care Teams Foster Care Worker Relationship Specialty Start Date End Date Pcp, No PCP - General General Medicine 05/29/23
--- OUTSIDE RECORDS SUMMARY | 2024-05-31 16:53 | XMS_ITS | Continuity of Care Document ---
Author Organization [facility]. If a dditional information is needed, contact Health Information Management at [phone] Address [address] [place] [address] Phone Care Team Providers Care Nursing Information Systems Coordinator Name Role Phone Unavailable Unavailable Unavailable Unavailable Unavailable Problems Pharyngitis Onset:31-Oct-2015 [facility] Mental Status Cognitive function finding 31-Oct-2015 Functional Status Functional finding 31-Oct-2015 Allergies and Adverse Reactions Amoxicillin(Allergy) Onset: 31-Oct-2015 Reaction:RASH ZPACK(Allergy) Onset: 31-Oct-2015 Reaction:NAUSEOUS Social History Smoking Status Never smoked tobacco Recorded: 31-Oct-2015
--- OUTSIDE RECORDS SUMMARY | 2024-05-31 16:53 | XMS_ITS | Encounter Summary ---
Author Organization [facility] Address [address] [place] [address] Phone Care Team Providers Care Certified Massage Therapist Name Role Phone Unavailable Primary Care Provider Unavailabl e Encounter Details Date Type Department Care Team (Late st Contact Info) Description 02/16/2014 Documentation [facility] [place] [facility] [place] [address] Family Medicine, Physician [address] [place] [address] Social History Tobacco Use Types Packs/Day Years [...]
--- OUTSIDE RECORDS SUMMARY | 2024-05-31 16:53 | XMS_ITS | Encounter Summary ---
Author Organization [facility] Address [address] [place] [address] Phone Care Team Providers Care Company Pilot Name Role Phone Unavailable Primary Care Provider Unavailabl e Encounter Details Date Type Department Care Team (Late st Contact Info) Description 07/06/2014 Documentation [facility] [place] [facility] [place] [address] Family Medicine, Physician [address] [place] [address] Social History Tobacco Use Types Packs/Day Years [...]
--- OUTSIDE RECORDS SUMMARY | 2024-05-31 16:53 | XMS_ITS | Encounter Summary ---
Author Organization [facility] Address [address] [place] [address] Phone Care Team Providers Care J2Ee Consultant Name Role Phone Unavailable Primary Care Provider Unavailabl e Encounter Details Date Type Department Care Team (Late st Contact Info) Description 04/24/2016 Documentation [facility] [place] [facility] [place] [address] Family Medicine, Physician [address] [place] [address] Social History Tobacco Use Types Packs/Day Years [...]
== END 2024-05-31 15:36 | disposition home or self-care (01) ==
PROVIDERS: PCP Nurse Practitioner Family; Visit Provider Nurse Practitioner Family
DX: Z00.00 Encounter for general adult medical examination without abnormal findings (principal); Z80.8 Family history of malignant neoplasm of other organs or systems; E53.8 Deficiency of other specified B group vitamins; E61.1 Iron deficiency

== ENCOUNTER → 2024-05-31 14:38 | Outpatient (BNVA) | payer BC, SELFPAY | PROVIDERS: PCP Nurse Practitioner Family; Visit Provider Nurse Practitioner Family | DX: Z00.00 Encounter for general adult medical examination without abnormal findings (principal); E53.8 Deficiency of other specified B group vitamins; E61.1 Iron deficiency; Z80.8 Family history of malignant neoplasm of other organs or systems | CPT/HCPCS: 96127 ==

== ENCOUNTER 2025-01-18 10:06 | Outpatient (REF) | payer BC, SELFPAY ==
--- OUTSIDE RECORDS SUMMARY | 2025-01-18 11:37 | XMS_ITS | Encounter Summary ---
Author Organization [facility] Address [address] [place] [address] Phone Care Team Providers Care Carpenter Name Role Phone Unavailable Primary Care Provider Unavailabl e Encounter Details Date Type Department Care Team (Late st Contact Info) Description 11/21/2016 Conversion Encounter [facility] - [address] [address] Social History Tobacco Use Types Packs/Day Years [...]
--- OUTSIDE RECORDS SUMMARY | 2025-01-18 11:37 | XMS_ITS | Encounter Summary ---
Author Organization [facility] Address [address] [place] [address] Phone Care Team Providers Care Cottage Parent Name Role Phone Unavailable Primary Care Provider Unavailabl e Encounter Details Date Type Department Care Team (Late st Contact Info) Description 10/10/2016 Documentation [facility] [place] [facility] [place] [address] Family Medicine, Physician [address] [place] [address] Social History Tobacco Use Types Packs/Day Years [...]
--- OUTSIDE RECORDS SUMMARY | 2025-01-18 11:37 | XMS_ITS | Encounter Summary ---
Author Organization [facility] Address [address] [place] [address] Phone Care Team Providers Care Interior Design Instructor Name Role Phone Unavailable Primary Care Provider Unavailabl e Encounter Details Date Type Department Care Team (Late st Contact Info) Description 08/03/2014 Documentation [facility] [place] [facility] [place] [address] Family Medicine, Physician [address] [place] [address] Social History Tobacco Use Types Packs/Day Years [...]
--- OUTSIDE RECORDS SUMMARY | 2025-01-18 11:37 | XMS_ITS | Encounter Summary ---
Author Organization [facility] Address [address] [place] [address] Phone Care Team Providers Care Oracle Iam Consultant Name Role Phone Unavailable Primary Care Provider Unavailabl e Encounter Details Date Type Department Care Team (Late st Contact Info) Description 04/24/2016 Documentation [facility] [place] [address] Family Medicine, Physician [address] [place] [address] Social History Tobacco Use Types Packs/Day Years [...]
--- OUTSIDE RECORDS SUMMARY | 2025-01-18 11:38 | XMS_ITS | Encounter Summary ---
Author Organization [facility] Address [address] [place] [address] Phone Care Team Providers Care Education Administrator Name Role Phone Unavailable Primary Care Provider Unavailabl e Encounter Details Date Type Department Care Team (Late st Contact Info) Description 12/23/2012 Documentation [facility] [place] [facility] [place] [address] Family Medicine, Physician [address] [place] [address] Social History Tobacco Use Types Packs/Day Years [...]
--- OUTSIDE RECORDS SUMMARY | 2025-01-18 11:38 | XMS_ITS ---
Author Name [facility] Organization Unknown Encounters Encounter Type Encounter Reason Primary Diagnosis Location Date Ambulatory [facility] 07/30/2023 Care Team Organization Name Specialty Phone Email Start Date End Da te [facility] PCP Pail Tester 07/31/2023 06/23/2024 [place] [facility] 05/29/2023 [facility] NO PCP Primary Care 05/29/2023
--- OUTSIDE RECORDS SUMMARY | 2025-01-18 11:38 | XMS_ITS | Clinical Summary ---
Author Organization [facility] Address [address] [place] [address] Phone Care Team Providers Care Bowling Ball Marker Name Role Phone Unavailable Primary Care Provider Unavailabl e Allergies Active Allergy Reactions Criticality Noted Date Comments Amoxicillin Hives Food 12/01/2017 [place] [facility] VIENVA 0.1-20 MG-MCG per tabletIndications: Oral [...] 62 12/01/2017 9:12 AM EDT Temperature 36.8 C (98.3 F) 11/18/2013 12:00 AM EDT Respiratory Rate - - Oxygen Saturation - - Inhaled Oxygen Concentration - - Weight 60 kg (132 lb 3.2 oz) 12/01/2017 9:12 AM EDT Height 157.5 cm (5' 2 ) 12/01/2017 9:12 AM EDT Body Mass Index 24.18 12/01/2017 9:12 AM EDT Plan of Treatment Health Maintenance Due Date Last Done Comments Influenza Vaccines (#1) 2024 11/26/2016, 01/14 COVID-19 Vaccine ( season) 2024 DTaP,Tdap,and Td Vaccines (8 - Td or [...] complete this topic Procedures * Due to [place] [employer] law, this organization might not be sharing sensitive test results. Procedure Name Priority Date/Time Associated Diagnosis Comments CHLAMYDIA AND GONORRHEA, AMPLIFIED Routine 12/01/2017 9:26 AM EDT Well adult exam from Last 3 Months or Most Recently Relevant to Health Maintenance Results * Due to [place] [employer] law, this organization might not be sharing sensitive test results. * Chlamydia and Gonorrhea, Amplified (12/01/2017 9:26 AM EDT) Chlamydia Trachomatis, DNA Probe NEGATIVE (NEG) [facility] Comment: No Chlamydia Trachomatis RNA detected in this patient's sample (REFERENCE RANGE/NORMAL VALUE: NOT DETECTED) Note: This test uses public health veterinarian- mediated amplification method to detect rRNA from C. Trachomatis URINE GC AMP PROBE NEGATIVE (NEG) [facility] Comment: No Neisseria Gonorrhoeae RNA detected in this patient's sample (REFERENCE RANGE/NORMAL VALUE: NOT DETECTED) NOTE: This test uses public health veterinarian-mediated amplification method to detect rRNA from N.Gonorrhoeae. [...] without risk of sexual abuse. Consult the [facility] if needed. Contact phone number . Therapeutic failure or success cannot be determined with the Aptima Combo2 assay since nucleic acid may persist following appropriate antimicrobial therapy. The Centers for Disease Control and Prevention (CDC) recommends confirmatory retesting using culture or a different nucleic acid amplification test when positive results occur, if indicated. Testing performed or reported by [facility], a Service of [facility], [facility] [place] [address] [place] [id number] Ede Orozco MD, PhD, Wet Machine Tender Urine 12/01/2017 9:26 AM EDT 12/01/2017 10:56 PM EDT us Joelle Cedillo MD LAB MICROBIOLOGY - GENERAL ORDERABLES Final Result [facility] from Last 3 Months or Most Recently Relevant to Health Maintenance Insurance [facility]
--- OUTSIDE RECORDS SUMMARY | 2025-01-18 11:38 | XMS_ITS | Clinical Summary ---
Author Organization [facility] Address [address] [place] [address] Care Team Providers Care Production Administrative Assistant Name Role Phone Pcp, No Primary Care Provider Unavailabl e Social History Tobacco Use Types Packs/Day Years Used Date Smoking Tobacco: Never Assessed Comments Unknown Sex and Gender Information Value Date Recorded Sex Assigned at Unknown 05/29/2023 10:27 AM EST Legal Sex Female 12:38 PM EST Gender Identity Choose not to disclose 10:27 AM EST Sexual Orientation Choose not to disclose 2023 10:27 AM EST Plan of Treatment Health Maintenance Due Date Last Done Comments Hepatitis C Virus Screening 1996 HIV Screening 2009 DTaP/Tdap/Td Vaccines (1 - Tdap) 11/10/2015 Hepatitis B Vaccines (1 of 3 - 19+ 3-dose series) 11/10/2015 Pap Smear (Ages 21-65) 2017 Influenza Vaccine 11/05/2024 11/26/2016, 01/14/2015 COVID-19 Vaccine ( - 2023-2 5 season) 2024 HPV Vaccines (No Doses Required) Completed Pneumococcal Vaccine: Pediatric (0-5 Years) and At-Risk Patients (6 to 49 Years) Aged Out No longer eligible b ased on patient's age to complete this topic Insurance [facility] - [employer]EE PLAN POWERED BY [employer] Member Subscriber Plan / Payer (Ef fective 2024-Present) Name:Becka Parks Member ID:[id number] Relation to Subscriber:Self Name:Becka Parks Subscriber ID:[id number] Payer ID:[id number] (NAIC) Type:Not on file Address: [address] [address] Care Teams Production Administrative Assistant Relationship Specialty Start Date End Date Pcp, No PCP - General General Medicine 05/29/23
--- OUTSIDE RECORDS SUMMARY | 2025-01-18 11:38 | XMS_ITS | Encounter Summary ---
Author Organization [facility] Address [address] [place] [address] Phone Care Team Providers Care Tractor Trailer Mechanic Name Role Phone Unavailable Primary Care Provider Unavailabl e Encounter Details Date Type Department Care Team (Late st Contact Info) Description 07/06/2014 Documentation [facility] [place] Medicine [facility] [place] [address] Family Medicine, Physician [address] [place] [address] Social History Tobacco Use Types Packs/Day Years [...]
--- OUTSIDE RECORDS SUMMARY | 2025-01-18 11:38 | XMS_ITS | Encounter Summary ---
Author Organization [facility] Address [address] [place] [address] Phone Care Team Providers Care Assistant Manager Airside Operations Name Role Phone Unavailable Primary Care Provider Unavailabl e Encounter Details Date Type Department Care Team (Late st Contact Info) Description 12/23/2012 Documentation [facility] [place] [facility] [place] [address] Family Medicine, Physician [address] [place] [address] Social History Tobacco Use Types Packs/Day Years [...]
--- OUTSIDE RECORDS SUMMARY | 2025-01-18 11:38 | XMS_ITS | Encounter Summary ---
Author Organization [facility] Address [address] [place] [address] Phone Care Team Providers Care Owner Operator Name Role Phone Unavailable Primary Care Provider Unavailabl e Encounter Details Date Type Department Care Team (Late st Contact Info) Description 07/21/2014 Documentation [facility] [place] [address] Family Medicine, Physician [address] [place] [address] Social History Tobacco Use Types Packs/Day Years [...]
--- OUTSIDE RECORDS SUMMARY | 2025-01-18 11:38 | XMS_ITS | Encounter Summary ---
Author Organization [facility] Address [address] [place] [address] Phone Care Team Providers Care Wax Ball Molder Name Role Phone Unavailable Primary Care Provider Unavailabl e Reason for Visit * Reason Comments Med Refill Encounter Details Date Type Department Care Team (Late st Contact Info) Description 09/15/2017 Refill [facility] [place] [address] [place] [address] Joelle Cedillo MD [address] [place] [address] Oral contraceptive pill surveillance (Primary Dx) Social [...]
--- OUTSIDE RECORDS SUMMARY | 2025-01-18 11:38 | XMS_ITS | Encounter Summary ---
Author Organization [facility] Address [address] [place] [address] Phone Care Team Providers Care Retail Shift Leader Name Role Phone Unavailable Primary Care Provider Unavailabl e Encounter Details Date Type Department Care Team (Late st Contact Info) Description 02/16/2014 Documentation [facility] [place] [address] Family Medicine, Physician [address] [place] [address] Social History Tobacco Use Types Packs/Day Years [...]
[2025-01-18 13:07] LABS: MANUAL DIFF FLAG NO
[2025-01-18 13:17] LABS: Appearance Urine Clear; Glucose Urine UA Negative (Negative); PH 5.5 (5.0-9.0); Specific Gravity - Urine 1.020 (1.005-1.025)
[2025-01-18 13:23] LABS: Hematocrit 40.7 % (37.0-47.0); Hemoglobin 13.5 g/dl (12.0-16.0); Imm Gran Abs Auto 0.01 X10*3/uL (0.00-0.03); Imm Gran Pct Auto 0.2 % (0.0-0.4); Lymphocytes Absolute Auto 2.1 X10*3/uL (1.2-4.9); Mean Corpuscular HGB Conc 33.2 g/dl (31.0-35.0); Mean Corpuscular Hemoglobin 28.8 pg (27.0-33.0); Mean Corpuscular Volume 87.0 fL (80.0-98.0); NRBC Abs Auto 0.000 X10*3/uL (0.0-0.012); NRBC Pct Auto 0.0 /100WBC (0.0-0.2); Platelet Count 302 X10*3/uL (160-400); Red Blood Count 4.68 X10*6/uL (4.20-5.50); White Blood Count 5.4 X10*3/uL (4.8-10.8)
[2025-01-18 13:57] LABS: Alanine Aminotransferase 11 U/L (0-31); Albumin Level 4.7 g/dL (3.5-5.0); Alkaline Phosphatase 58 U/L (39-117); Anion Gap 12 (12-20); Aspartate Amino Transferase 19 U/L (5-31); Blood Urea Nitrogen 11 mg/dL (9-16); Calcium 9.5 mg/dL (8.4-10.2); Carbon Dioxide 24 mmol/L (22-29); Chloride 107 mmol/L (96-108); Cholesterol 230 mg/dL (<200); Estimated Glomerular Filt Rate > 60; HDL Cholesterol 71 mg/dL (>40); Iron 117 mcg/dL (30-160); Percent Iron Saturation 34 % (15-50); Potassium 3.9 mmol/L (3.3-5.1); Sodium 139 mmol/L (135-145); Total Iron Binding Capacity 348 mcg/dL (228-428); Total Protein 8.2 g/dL (6.5-8.0); Triglycerides 129 mg/dL (<150); Unsaturated Iron Binding 231 ug/dL
[2025-01-18 14:22] LABS: Folate 8.2 ng/mL (> or = 4.0); Vitamin B12 292 pg/mL (200-900)
[2025-01-18 14:25] LABS: Ferritin 67 ng/mL (10-122)
== END 2025-01-18 10:07 | disposition home or self-care (01) ==
LOC: HO.HMGCLDS 10:06
PROVIDERS: PCP Nurse Practitioner Family; Visit Provider Nurse Practitioner Family
DX: Z00.00 Encounter for general adult medical examination without abnormal findings (principal); Z13.6 Encounter for screening for cardiovascular disorders; Z13.29 Encounter for screening for other suspected endocrine disorder; E53.8 Deficiency of other specified B group vitamins; E61.1 Iron deficiency
CPT/HCPCS: 36415; 80053; 80061; 81003; 82607; 82728; 82746; 83540; 84443; 85025